=== PATIENT | female | born 1995 | race Caucasian/White ===

== ENCOUNTER 2017-03-13 14:09 | Emergency (ER) | payer SELFPAY ==
--- NOTE | 2017-03-13 15:38 | XRay Report ---
CHEST TWO VIEWS: 03/13/17 14:09:00 CLINICAL: Cough. COMPARISON: None FINDINGS: Normal heart and pulmonary vasculature. The lungs are normally expanded and clear.The bones and soft tissues are unremarkable. IMPRESSION: Normal chest.
--- NOTE | 2017-03-13 20:05 | Emergency Department Report ---
Entered by FARZANEH WEBER, acting as scribe for ZAINAB FRANKS PA. - General Chief Complaint: Upper Respiratory Infection Stated Complaint: CHEST PAIN,SOB Source: patient Mode of arrival: Ambulatory Limitations: No Limitations - History of Present Illness Initial Comments: 21 y/o female, no pertinent PMHx, c/o chest pain beginning 3 days ago, aggravated by coughing and deep breathes, no alleviating factors, intermittent since onset, stabbing in quality, 6/10 in severity. Associated symptoms include chills, productive cough, sneezing with yellow sputum, rhinorrhea with thick yellow mucus, nausea and posttussive emesis, sore throat due to coughing, but she denies fever, SOB, or sick contacts. Patient has taken Robotussin with no relief of symptoms. Patient is currently taking no medications and is allergic to Cephalexin. MD Complaint: other (chest pain) Onset/Timin -: days(s) Severity scale (0 -10): 6 Quality: stabbing Improves With: nothing Worsens With: deep breaths, other (cough) Associated Symptoms: chills, rhinorrhea (thick yellow mucus), sore throat ( caused by coughing), cough (productive: yellow mucus), chest pain, nausea, vomiting (post tussive emesis). denies: fever, headache Treatments Prior to Arrival: other (Patient states they took OTC meds with no relief) - Related Data Previous Rx's Medication Instructions Recorded Last Taken Type Promethazine /Codeine 5 ml PO QHS PRN #70 ml 03/13/17 Unknown Rx [Phenergan/Codeine 6.25-10 mg/5 ml] Allergies Allergy/AdvReac Type Severity Reaction Status Date / Time cephalexin monohydrate Allergy Shortness Verified 03/13/17 14:19 [From Keflex] of Breath ED Review of Systems Constitutional: chills. denies: fever ENT: throat pain (caused by coughing), other (rhinorrhea with thick yellow mucus , sneezing) Respiratory: cough. denies: shortness of breath Cardiovascular: chest pain Gastrointestinal: nausea, vomiting (post tussive emesis). denies: abdominal pain, diarrhea Skin: denies: rash, lesions Neurological: denies: headache ED Past Medical Hx - Past Medical History Previous Medical History?: No - Surgical History Past Surgical History?: No - Social History Smoking Status: Current Every Day Smoker Substance Use Type: Alcohol - Medications Home Medications: Home Medications Medication Instructions Recorded Confirmed Last Taken Type Promethazine /Codeine 5 ml PO QHS PRN #70 ml 03/13/17 Unknown Rx [Phenergan/Codeine 6.25-10 mg/5 ml] ED Physical Exam - General Limitations: No Limitations General appearance: alert, in no apparent distress - Head Head exam: Present: atraumatic, normocephalic - Eye Eye exam: Present: normal appearance, PERRL - ENT ENT exam: Present: mucous membranes moist, TM's normal bilaterally, normal external ear exam, other (patient has post-nasal drip, nares are erythematous and mucus is present) - Expanded ENT Exam Expanded Ear exam: Present: normal external inspection Mouth exam: Present: normal external inspection Teeth exam: Present: normal inspection Throat exam: Positive: normal inspection. Negative: tonsillar erythema, tonsillomegaly, tonsillar exudate - Neck Neck exam: Present: normal inspection, full ROM. Absent: lymphadenopathy - Respiratory Respiratory exam: Present: normal lung sounds bilaterally. Absent: respiratory distress, wheezes, rales, rhonchi - Cardiovascular Cardiovascular Exam: Present: regular rate, normal rhythm (S1, S2), normal heart sounds. Absent: systolic murmur, diastolic murmur, rubs, gallop - GI/Abdominal GI/Abdominal exam: Present: soft, normal bowel sounds. Absent: distended, tenderness - Extremities Exam Extremities exam: Present: normal inspection, full ROM, normal capillary refill. Absent: tenderness - Back Exam Back exam: Present: normal inspection, full ROM. Absent: tenderness - Neurological Exam Neurological exam: Present: alert, oriented X3, CN II-XII intact - Psychiatric Psychiatric exam: Present: normal affect, normal mood - Skin Skin exam: Present: warm, dry, intact, normal color. Absent: rash ED Course Vital Signs 03/13/17 14:15 Temperature 98.9 F Pulse Rate 84 Respiratory 20 Rate Blood Pressure 110/68 O2 Sat by Pulse 100 Oximetry ED Medical Decision Making - Medical Decision Making Patient was evaluated in fast track area of ED by this provider. Patient presented with upper respiratory infection for 3 days. Patient is in no acute distress at this time. She will be discharged home with a prescription of Promethazine with Codeine. Patient was recommended Zyrtec or Claritin to take during the day. Patient verbalized understanding. She is encouraged to return to the emergency room for any worsening symptoms. ED Disposition Clinical Impression: URI (upper respiratory infection) Qualifiers: URI type: unspecified viral URI Qualified Code(s): J06.9 - Acute upper respiratory infection, unspecified; B97.89 - Other viral agents as the cause of diseases classified elsewhere Disposition: DISCHARGED TO HOME OR SELFCARE Is pt being admited?: No Does the pt Need Aspirin: No Condition: Stable Instructions: Upper Respiratory Infection (ED) Additional Instructions: Please take cough medication as prescribed . Do not operated heavy machinery while on this medication. Prescriptions: Promethazine /Codeine [Phenergan/Codeine 6.25-10 mg/5 ml] 5 ml PO QHS PRN #70 ml PRN Reason: cough Referrals: PRIMARY CARE,MD [Primary Care Provider] - 3-5 Days [facility] [Outside] - 3-5 Days Forms: Work/School Release Form(ED), Accompanied Note This documentation as recorded by the TIA dee MATHEW,accurately reflects the service I personally performed and the decisions made by me, ZAINAB FRANKS PA.
[2017-03-13 20:16] VITALS: BP 120/80
== END 2017-03-13 20:17 | disposition home or self-care (01) ==
LOC: ED 14:09
DX: J06.9 Acute upper respiratory infection, unspecified (principal); B97.89 Other viral agents as the cause of diseases classified elsewhere; F17.200 Nicotine dependence, unspecified, uncomplicated
CPT/HCPCS: 71020; 99283